=== PATIENT | female | born 1970 | race Caucasian/White ===

== ENCOUNTER 2025-07-06 06:39 | Day surgery (SDC) | payer OTHER, SELFPAY ==
--- NOTE | 2025-07-01 11:03 | HO.ANESPROP2 ---
Documented by User: Lorrie Ortiz NP 07/01/25 11:03 HPI - Anesthesia Eval Consult details Narrative: 55 yr old female for C7-T1 Cervical Interlaminar KI PMFSH Active Problems Active Problems: All Active Problems (Updated 06/22/25 @ 19:18 by Kenji Martino DO) Cervical radiculitis (Acute) Past Medical History Medical History Arthritis Depression Cold sore Vertigo Obesity Surgical History Surgical History History of hip surgery Status post ORIF of fracture of ankle S/P cholecystectomy H/O cervical spine surgery Social History Social History Household Members: Spouse Patient Tobacco Use Status: Never used Tobacco Use of substances other than those prescribed or required for medical reasons: No Have you been hit, kicked, punched, or otherwise hurt by someone within the past year? If so, by whom?: No Are you DNR?: No Advance Directives: No Advance Directives Information Provided: Yes Meds Allergies Allergy/AdvReac Type Severity Reaction Status Date / Time No Known Allergies Allergy Verified 07/01/25 11:04 Home Medications ?Medication ?Instructions ?Recorded ?Confirmed ?Last Taken ?Type escitalopram oxalate 10 mg tablet 10 mg PO DAILY 07/02/25 07/06/25 07/05/25 History Documented by User: Lily Vallecillo MD 07/06/25 07:38 PMFSH Past Medical History Medical History Arthritis Depression Cold sore Vertigo Obesity Surgical History Surgical History History of hip surgery Status post ORIF of fracture of ankle S/P cholecystectomy H/O cervical spine surgery History of Problems with Anesthesia: No Social History Social History Household Members: Spouse Patient Tobacco Use Status: Never used Tobacco Use of substances other than those prescribed or required for medical reasons: No Have you been hit, kicked, punched, or otherwise hurt by someone within the past year? If so, by whom?: No Are you DNR?: No Advance Directives: No Advance Directives Information Provided: Yes Meds Allergies Allergy/AdvReac Type Severity Reaction Status Date / Time No Known Allergies Allergy Verified 07/01/25 11:04 Home Medications ?Medication ?Instructions ?Recorded ?Confirmed ?Last Taken ?Type escitalopram oxalate 10 mg tablet 10 mg PO DAILY 07/02/25 07/06/25 07/05/25 History Exam Airway Mallampati Class: II TM Dist: >3cm Neck ROM: Full Loose/Missing/Broken Teeth: No Heart: RRR Lungs: CTA Assessment and Plan Assessment Anesthesia Assessment: Anesthesia Plan Discussed and Chart Reviewed Final Anesthetic Review History of Problems with Anesthesia: No NPO: Yes ASA Class: II Final Preanesthetic Review: Meds/Allgs Chart Reviewed, Consent Obtained/Reviewed and Anes Risks/Benef Reviewed Patient Risk: Low Procedure Risk: Low Anesthetic Plan Anesthetic Plan: MAC: Disposition: Standard PACU
--- NOTE | ~2025-07-06 | FL_ITS ---
EXAMINATION: FL GUIDANCE ONLY HISTORY: c7-t1 cervical interlaminar kristin COMPARISON: None available. TECHNIQUE: Fluoroscopy time: 13 seconds. Cumulative Dose: 1.40 mGy. DAP: 26.12 uGym2 Images: 1. FINDINGS: A single fluoroscopic spot film of the cervicothoracic junction demonstrates a needle and contrast material. FL/FL guidance in OR IMPRESSION: Fluoroscopy during procedure. Please see procedure report for additional information. Electronically signed by: Chuck Rowe MD 07/06/2025 08:52 AM EST
[2025-07-06 06:53] VITALS: BP 105/50; PULSE 64; RESP 20; TEMP 36.4; O2SAT 96; BMI 35.1
[2025-07-06] MEDS: Lactated Ringers 1,000 ML 100 ML IVCONT (07:06)
--- NOTE | 2025-07-06 07:48 | MHC.SHP ---
Pre-Procedural Eval Section A - 24 Hr Update-Section A only Date of Service: 07/06/25 The patient is an INPATIENT: No Section B - Complete if H&P > 30 days Chief Complaint: Radiculopathy, cervical region Details of Present Illness: Chronic cervical radiculitis Relevant Family History (Specify if Yes): No Relevant Social History: None Present Medications: see Short Stay Collaborative assessment Medical History: No relevant PMH History of Previous Operations: Relevant previous surgery/procedure and date(s) (Cervical ACDF) Allergies: Allergies Allergy/AdvReac Type Severity Reaction Status Date / Time No Known Allergies Allergy Verified 07/01/25 11:04 Review of Systems Sugical H&P ROS: Negative: Constitution, Cardiovascular, Respiratory, Neurological, Psychiatric, Hem-Onc, Allergic/Immunologic, Gastrointestinal, Genitourinary, Musculoskeletal, Integumentary, Endocrine and Eyes/Ears/Nose/Throat Exam Surgical H&P Exam: Normal: HEENT, Normal: Heart, Normal: Lungs, Normal: Extremities, Normal: Abdomen, Normal: Skin and Normal: Neurological Plan Diagnosis/Plan: Unchanged I have reviewed the history and physical and performed a pertinent physical examination on my patient. No changes have occurred unless specified. Time Spent With Patient Time: Total time managing care of this patient today ____ minutes.
--- NOTE | 2025-07-06 07:50 | W.PM.OPN ---
Operative Note Operative Note Date of Service: 07/06/25 Narrative: Procedure performed: Right C7-T1 KI Preop diagnosis: Cervical radiculitis Postop diagnosis: The same Anesthesia: MAC After informed consent was obtained patient was brought into the procedure room and placed in the prone position procedure table. Skin over cervicothoracic junction was prepped and draped in the usual sterile manner. Right C7-T1 interlaminar space was visualized utilizing fluoroscopy. After skin was anesthetized with lidocaine, 3.5 in 20 gauge Tuohy needle was introduced percutaneously and advanced superior edge of the T1 lamina. Needle was then slowly advanced into the epidural space utilizing loss of resistance technique. Once in place, needle placement was verified utilizing 3 cc of Omnipaque contrast solution. Good epidural spread was visualized. After negative aspiration for blood or cerebrospinal fluid, total volume of 5 cc containing 40 mg of triamcinolone and normal saline solution was injected. Radiation exposure was documented.
[2025-07-06 08:27] VITALS: BP 112/71; PULSE 61; RESP 16; TEMP 36.8; O2SAT 95
[2025-07-06 08:42] VITALS: BP 118/68; PULSE 67; RESP 16; TEMP 36.6; O2SAT 96
== END 2025-07-06 09:32 | disposition home or self-care (01) ==
PROVIDERS: PCP Internal Medicine; Visit Provider Physical Medicine & Rehabilitation
PROC: (CPT 62321; principal; 2025-07-06 08:00)
DX: M54.12 Radiculopathy, cervical region (principal); M48.02 Spinal stenosis, cervical region; M96.1 Postlaminectomy syndrome, not elsewhere classified; M19.90 Unspecified osteoarthritis, unspecified site; F32.A Depression, unspecified; R42 Dizziness and giddiness; Z79.899 Other long term (current) drug therapy; Z90.49 Acquired absence of other specified parts of digestive tract; Z98.890 Other specified postprocedural states
CPT/HCPCS: 62321; J2003; J2250; J3301; Q9967

== ENCOUNTER → 2025-07-06 06:39 | Outpatient (BNV) | payer OTHER, SELFPAY | PROVIDERS: PCP Internal Medicine; Visit Provider Physical Medicine & Rehabilitation | DX: M54.12 Radiculopathy, cervical region (principal) | CPT/HCPCS: 62321 ==

== ENCOUNTER 2025-07-28 08:31 | Outpatient (AMB) | payer OTHER, SELFPAY ==
[2025-07-28 08:31] VITALS: BMI 35.0
--- NOTE | 2025-07-28 08:31 | A.PHYSOV_ITS ---
Vital Signs 07/28/25 08:31 Height 5 ft 9 in Weight 237 lb BMI 35.0 Intake Visit Reasons: F/U after injection 07/06/2025 Intake Note: Patient is a 55 year old female in office today for a follow up after Right C7- T1 interlaminar epidural injection 07/06/25. 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 She has a history of C5-C6 cervical disc displacement from 2018 with persistent right-sided cervical radicular symptoms. Her very initial radicular symptoms were on the left side which eventually propagated to the right side An MRI of her cervical spine on August 14, 2023, led to a neurosurgical consultation. Based on her MRI results showing a right C5 neural foraminal stenosis, she underwent a right C5 transforaminal injection on September 24, 2023, which provided no relief. Subsequently, she had a C4-C5 ACDF on December 26, 2023, which initially resulted in significant improvement of a buzzing sensation in her right shoulder. She continued to experience a persistent sensation of tiredness and weakness post-surgery, and the buzzing sensation later returned. A cervical spine X-ray on January 22, 2024, demonstrated post-surgical changes at C4-C5 with an interbody spacer and the prior ACDF at C5-C6. A repeat cervical spine MRI on June 01, 2025, showed the post-surgical changes, moderate left and minimal right uncovertebral spurs at the C6-C7 level, and no significant spinal stenosis. She most recently had a right C7-T1 interlaminar epidural injection on July 06, 2025. She reports at least 90% improvement in her symptoms after the procedure. She is very happy with the outcome of the procedure so far. The patient's job involves continuous computer use, and she is also physically active, lifting her twin grandsons. Pain Description - Location: Prior to the most recent injection, the patient experienced a buz zing sensation in the right shoulder, along with heaviness, tiredness, and weakness in the right forearm. - Current Symptoms: Post-injection, she reports some residual pain in her upper neck/shoulder area, which is present even at rest with her arms down. - Character: Previously described as a buzzing feeling with arm weakness and heaviness. - Relieving Factors: A right C7-T1 interlaminar epidural injection on July 06, 2025, provided approximately 90% improvement, resolving the buzzing, weakness, and heaviness. - Exacerbating Factors: Lifting her arm does not exacerbate the current residual pain. - Functional Impact: She continues to work on a computer and lift her grandchildren. Results - MRI Cervical Spine (August 14, 2023): Demonstrated a right C5 issue and advancing degeneration of the L4-L5 disc. - X-ray Cervical Spine (January 22, 2024): Showed post-surgical changes at C4-C5 with an interbody spacer and a prior ACDF at C5-C6. - MRI Cervical Spine (June 01, 2025): Showed post-surgical changes, moderate left and minimal right C6-C7 uncovertebral spurs, and no significant spinal stenosis. [facility] Medical History (Updated 07/28/25 @ 08:45 by Kenji Martino DO) Cervicobrachial syndrome Post laminectomy syndrome Arthritis Depression Cold sore Vertigo Obesity Surgical History History of hip surgery Status post ORIF of fracture of ankle S/P cholecystectomy H/O cervical spine surgery Social History (Updated 07/28/25 @ 08:34 by Lacy Farrar MA) Household Members: Spouse Alcohol intake: current Alcohol intake frequency: holidays/special occasions only Patient Tobacco Use Status: Never used Tobacco Current occupational status: employed Current occupation: registered phlebotomist part time Review of Systems Narrative Review of Systems - Neurological: Reports a history of buzzing sensation, weakness, and heaviness in the right arm which have resolved after her recent injection. She continues to feel that her right arm feels different at rest. - Musculoskeletal: She reports some residual pain in her upper neck/shoulder region. - General: Reports feeling tired and weak after her surgery in December 2023, but does not specify if this is ongoing. Denies any change in bowel bladder habits. Denies any fever or chills. Physical Exam Exam Exam: Physical Exam Patient appears to be in no acute distress, appropriately conversant oriented. She ambulates without antalgia. Neurological examination of upper and lower extremities was nonfocal. Spurling maneuver was negative. Lhermitte's sign was negative. Cervical range of motion was restricted in rotation and side bending to the right. Patient demonstrated no upper motor neuron signs. Vital Signs: BMI result Body Mass Index 35.0 Assessment & Plan Assessment & Plan (1) Cervical radiculitis: Code(s): M54.12 - Radiculopathy, cervical region Category: Medical (2) Post laminectomy syndrome: Code(s): M96.1 - Postlaminectomy syndrome, not elsewhere classified Category: Medical (3) Cervicobrachial syndrome: Code(s): M53.1 - Cervicobrachial syndrome Category: Medical Plan Pain Management - Analgesia: The patient reports 90% pain improvement following a right C7-T1 interlaminar epidural injection. - Affect: The patient is positive about the results of the injection. - Activities of Daily Living: The patient continues to work on a computer and lift her grandchildren. - Adverse Effects: No adverse effects from treatment were discussed. - Aberrant Drug Related Behaviors: No aberrant behaviors were noted or discussed. Plan Patient was informed and verbally consented to the use of an ambient scribe for clinic note documentation during this visit. 1. Cervical Radiculopathy The patient is status post a right C7-T1 interlaminar epidural injection on July 06, 2025, for right-sided radicular symptoms. She reports approximately 90% improvement, with resolution of the previously reported buzzing, weakness, and heaviness in her right arm. Given the significant symptomatic relief from the injection and MRI findings that do not support surgical intervention, the current plan is conservative management. She has the option for a repeat injection in the future if her symptoms recur. The patient will follow up on an as-needed basis and will call if symptoms worsen. Discussion Notes I discussed with the patient that her recent right C7-T1 interlaminar epidural injection appears to be working well, as she reported 90% improvement in her symptoms. I noted that the buzzing, weakness, and heaviness in her right arm have resolved. I explained that although her MRI shows bone spurs, they are more pronounced on her asymptomatic left side, and therefore I do not recommend surgical intervention at this point. We agreed that she can receive another injection in the future if needed, provided the current one offers sustained relief. The plan is for her to monitor her symptoms and to call the office if they worsen, rather than scheduling a routine follow-up. Patient Instructions - We are very happy that your recent injection has provided 90% relief of your arm symptoms. - Based on our discussion and your imaging results, we do not recommend surgery at this time. - You may be able to get another injection in the future if you feel your symptoms are returning. - Please call the office if your pain gets worse or if your arm symptoms come back. Coding Level of Care Code Est Pt Level 4 (79768) Add On Problem Visit Only Diagnoses Cervical radiculitis M54.12 Post laminectomy syndrome M96.1 Cervicobrachial syndrome M53.1
--- OUTSIDE RECORDS SUMMARY | 2025-07-28 09:02 | XMS_ITS | Patient Health Record ---
Author Organization [facility] Address [address] [place] [address] Care Team Providers Care Public Relations Specialist Name Role Phone HARRY GRABELA Primary Care Provide [phone] Allergies No Known Allergies Reason For Referral No Information Medications Medication SIG (Take, Route, Frequency, Duration) Notes Start Date End Date Status Escitalopram Oxalate 10 MG Tablet TAKE 1 TABLET BY MOUTH EVERY DAY; Duration: 90 Active Social History Tobacco Use: Social History Observation Description Date Details (start date - stop date) Never Smoker NA - NA Social History Drug/Alcohol: Social Info Question Answer Notes Alcohol Screen Did you have a drink containing alcohol in the past year? Yes How often did you have a drink containing alcohol in the past year? Four or more times a week (4 points) How many drinks did you have on a tpical day when you were drinking in the past year? 1 or 2 (0 points) How often did you have six or more drinks on one occassion in the past year? 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: none Past year's travels: none alcohol use: 2-3 drinks per w [place] drug use: none Hobbies/Exercise habits: book cl ub Coffee/Tea/Soda: no coffee, chema y tea, no soda Marital Status experience n/a Living with Pets dog smokers in household none Drugs none Section Notes: never smoker never smoker never smoker never smoker never smoker Problems Problem Type SNOMED Code ICD Code Onset Dates Problem Status W/U Status Risk Notes Problem Vitamin D deficiency (83199437) Vitamin D deficiency (E55.9) Active confirmed Problem Urinary frequency (729478332) Urinary frequency (R35.0) Active confirmed Problem Mammography abnormal (231323781) Abnormal mammogram of right breast (R92.8) Active confirmed Problem Hyperlipidemia (71094843) Hyperlipidemia (E78.5) Active confirmed Problem Arthritis (1673192) Arthritis (M19.90) Active confirmed Problem Chronic pain (86365462) Other chronic pain (G89.29) Active confirmed Problem Cholelithiasis witho ut obstruction (87552171) Calculus of gallbladder without cholecystitis without obstruction (K80.20) Active confirmed Problem Sleep disturbance (00861316) Sleep disturbance (G47.9) Active confirmed Problem Vertigo (202703587) Vertigo (R42) Active confir med Problem Lumbar radiculopathy (136216682) Lumbar radiculopathy (M54.16) Active confirmed Problem Gallstones (556567541) Gallstone s (K80.20) Active confirmed Problem Intolerant of heat (52789723) Heat intolerance (R68.89) Active confirmed Problem Depressive disorder (disorder) (15079777) Depression, unspecified depression type (F32.9) Active confirmed Problem Dextroscoliosis (223056054785960) Dextroscoliosis (M41.80) Active confirmed Problem Displacement of lumb ar intervertebral disc without myelopathy (40416358) Lumbosacral disc herniation (M51.27) Active confirmed Problem Incontinence of fece s (34554297) Incontinence of feces, unspecified fecal incontinence type (R15.9) Active confirmed Problem Cervical radiculopat hy (86654253) Cervical radiculopathy at C5 (M54.12) Active confirmed Problem Disorder of musculoskeletal system (704158) Leg weakness, bilateral (R29.898) Active confirmed Problem Generalized anxiety disorder (03536063) KAYLIN (generalized anxiety disorder) (F41.1) Active confirmed Problem History of hypercholesterolemia (745040366) History of high cholesterol (Z86.39) Active confirmed Problem Subclinical hypothyroidism (59781063) Subclinical hypothyroidism (E03.8) Active confirmed Vital Signs Blood pressure diastolic 72 mm Hg 04/28/2025 Height 68.5 in 04/28/2025 Blood pressure systolic 118 mm Hg 04/28/2025 Weight 235 lbs 04/28/2025 BMI 35.21 kg/m2 04/28/2025 Encounters Encounter Location Date Provider Diagnosis [address] [address] 04/28/2025 [facility] Physical exam Z00.00 ; Cervical radiculopathy at C5 M54.12 ; Hyperlipidemia E78.5 ; Sleep disturbance G47.9 ; Low vitamin B12 level R79.89 ; Depression, unspecified depression type F32.9 and Lumbar radiculopathy M54.16 [place] [id number] 04/01/2025 [facility] Physical exam Z00.00 ; Hyperlipidemia E78.5 ; Vitamin D deficiency E55.9 ; B12 deficiency E53.8 and Subclinical hypothyroidism E03.8 [place] [id number] 04/01/2025 [facility] [address] [place] [id number] 08/11/2024 [facility] Assessments Encounter Date Diagnosis (ICD Code) Assessment Notes Treatment Notes Treatment Clinical Notes Section Notes 04/01/2025 Physical exam (ICD-10 - Z00.00) 04/28/2025 Physical exam (ICD-10 - Z00.00) utd labs and age approp screen 04/01/2025 Hyperlipidemia (ICD-10 - E78.5) 04/28/2025 Cervical radiculopathy at C5 (ICD-10 - M54.12) fu w/ physiatry as planned (knows to avoid chiropractor, rollercoasters) 04/28/2025 Hyperlipidemia (ICD-10 - E78.5) is doing better, lipids improved will cont to monitor 04/01/2025 Vitamin D deficiency (ICD-10 - E55.9) 04/01/2025 B12 deficiency (ICD-10 - E53.8) 04/28/2025 Sleep disturbance (ICD-10 - G47.9) difficulty falling asleep have ext discussed sleep hygiene 04/28/2025 Low vitamin B12 level (ICD-10 - R79.89) rec otc supplement of choice 04/01/2025 Subclinical hypothyroidism (ICD-10 - E03.8) 04/28/2025 Depression, unspecified depression type (ICD-10 - F32.9) feels mood good on current regimen 04/28/2025 Lumbar radiculopathy (ICD-10 - M54.16) chronic, no weakness, will fu w/ physiatry as planned 04/28/2025 Other Patient is seen today for a routine physical. As part of this visit we reviewed the following issues, which are considered and essential part of preventative health in this age group: - Breast Cancer screening for high risk individuals - utd - Cervical Cancer screening every 1-3 years - utd - Blood pressure screening annually - performed - Cholesterol screening every five years -utd - Osteoporosis prevention including calcium/vitamin D intake, weight bearing exercise & smoking cessation - Nutritional and exercise counseling - patient was advised to incorporate reg exercise - Counseling of injury prevention including fire prevention, smoke alarms and seat belt usage - Screening for depression - denies - Screening for domestic abuse - Screening for Type 2 diabetes mellitus in those with HTN and/or HLD - Prevention of and/or testing for infectious diseases, which may include Chlamydia Gonorrhea, Syphilis, HIV, Hepatitis C, and Tuberculosis - Education about skin cancer - Recommendations about immunizations - Recommendation of an eye exam for glaucoma once in this age range - patient utd - Screening for substance abuse (including tobacco, alcohol, and recreational drugs) -denies - Genetic cancer risk screening - - In addition to reviewing these issues, I have reviewed the following sections of the chart: family history, social history, surgical history, allergies, and past medical history. Plan Of Treatment Pending Test Test Name Order Date Echocardiogram 07/27/2022 CBC W/ AUTOMATED DIFF 07/27/2022 COMP. METABOLIC 07/27/2022 TSH WITH REFLEX TO FT4 07/27/2022 MRI cervical spine without contrast 09/13 Future Test Test Name Order Date LIPID PROFILE 03/10/2022 VITAMIN B12 03/10/2022 CBC W/ AUTOMATED DIFF 03/10/2022 COMP. METABOLIC 03/10/2022 HEPATIC FUNCTION PANEL 03/10/2022 LIPID PROFILE 09/13/2022 VITAMIN B12 09/13/2022 CBC W/ AUTOMATED DIFF 09/13/2022 25 OH Vitamin D 09/13/2022 TSH WITH REFLEX TO FT4 09/13/2022 MRI : Cervical Spine, with and without c ontrast 01/17/2023 Next Appt Details Provider Name:MATT HAYNESEUGENIOHILARYBERNIE, 04/29/2026 09:00:00 AM, [address] [place], [address], Insurance Providers Payer Name Payer Address Payer Phone Subscriber Number Group Number Insured Name Patient Relationship to Insured Coverage Start Date Coverage End Date [facility] [address] [place], [place] [id number] [phone] [id number] JEFF DICKSON Self - patient is the insured 2 Medical (General) History Medical History History ICD Code Arthritis depression vertigo Surgical History Surgery Date(Month/Year) ACDF 12/2023 gal bladder out 2021 neck surgery 2018 ankle surgery 2016 hip surgery 2011 Hospitalization History Reason Date(Month/Year) hot flushed, vomiting , loose stools 4 d ays prior 08/03
--- OUTSIDE RECORDS SUMMARY | 2025-07-28 09:02 | XMS_ITS | Patient Health Record ---
Author Organization [facility] Address [address] [place] [address] Care Team Providers Care Pediatric Oncology Nurse Name Role Phone MATT GILLETTE Primary Care Provide r Unavailable HUMBLE SMITH Unavailable [phone] Allergies No Known Allergies Reason For Referral No Information Medications Medication SIG (Take, Route, Frequency, Duration) Notes Start Date End Date Status Escitalopram Oxalate 10 MG TAKE 1 TABLET BY MOUTH EVERY DAY Oral; Duration: 30 Active valACYclovir HCl 1 GM 2 tablet Orally tw ice a day at earlies sign of outbreak; Duration: 1 days Active Levonorgestrel-Ethinyl Estrad 0.1-20 MG-MCG TAKE 1 TABLET DAILY Not-Taking Meclizine HCl 12.5 MG TAKE 1 TABLET BY M OUTH THREE TIMES A DAY NEEDED Oral; Duration: 20 Active Social History Alcohol Screen (Audit-C) Question Answer Notes Did you have a drink contain ing alcohol in the past year? Yes How often did you have a dri nk containing alcohol in the past year? Monthly or less (1 point) How many drinks did you have on a typical day when you were drinking in the past year? 1 or 2 drinks (0 point) Points 1 Interpretation Negative Sexual History Question Answer Notes Had sex in the past 12 months (vaginal, oral, or anal)? Yes with Men only Prevention strategies discussed: Other Tobacco use other than smoking: Question Answer Notes Are you an other tobacco user? No Section Notes: MARITAL STATUS: CHILDREN: none LIVES WITH: spouse OCCUPATION: employed full-time EXERCISE: occasional walking SEXUAL ACTIVITY: monogamous relationship. Heterosexual MARITAL STATUS: CHILDREN: none LIVES WITH: spouse OCCUPATION: employed full-time EXERCISE: occasional walking SEXUAL ACTIVITY: monogamous relationship. Heterosexual MARITAL STATUS: CHILDREN: none LIVES WITH: spouse OCCUPATION: employed full-time EXERCISE: occasional walking SEXUAL ACTIVITY: monogamous relationship. Heterosexual MARITAL STATUS: CHILDREN: none LIVES WITH: spouse OCCUPATION: employed full-time EXERCISE: occasional walking SEXUAL ACTIVITY: monogamous relationship. Heterosexual MARITAL STATUS: CHILDREN: none LIVES WITH: spouse OCCUPATION: employed full-time EXERCISE: occasional walking SEXUAL ACTIVITY: monogamous relationship. Heterosexual Problems Problem Type SNOMED Code ICD Code Onset Dates Problem Status W/U Status Risk Notes Problem Urge incontinence of urine (49923787) Urge incontinence (N39.41) Active confirmed Problem Female infertility (4756635) Female infertility, unspecified (N97.9) Active confirmed Problem Family history of malignant neoplasm of breast (593662477) Family history of malignant neoplasm of breast (Z80.3) Active confirmed Plan Of Treatment Pending Test Test Name Order Date MM Digital Mammo Screening 10/12/2015 MM Digital Mammo Screening 11/01/2016 MM Digital Mammo Screening 12/19/2017 MM Digital Screening Mammogram 3D 2018 MM Digital Screening Mammogram 3D 2019 MM Digital Screening Mammogram 3D 2021 Insurance Providers Payer Name Payer Address Payer Phone Subscriber Number Group Number Insured Name Patient Relationship to Insured Coverage Start Date Coverage End Date [facility] [address] [place] [id number] JEFF DICKSON Self - patient is the insured Medical (General) History Medical History History ICD Code Abnormal pap Female infertility, unspecified N97.9 Panic disorder [episodic paroxysmal anxi ety] F41.0 Vertigo of central origin, unspecified e ar H81.49 Family history of malignant neoplasm of breast Z80.3 Surgical History Surgery Date(Month/Year) Hip Impingement Surgery 2010 IVF Left Ankle Surgery 07/2016 Anterior Cervical Disectomy 09/17/2017 Cyst Removed from Right Breast 11/2017 Right Breast Bx 04/21/20 Hospitalization History Reason Date(Month/Year) See Surgical Hx
--- OUTSIDE RECORDS SUMMARY | 2025-07-28 09:02 | XMS_ITS | Clinical Summary ---
Author Organization [facility] Address [address] [place] [address] Phone Care Team Providers Care Mobile Heavy Equipment Mechanic Name Role Phone JayyedgarImelda Forrest DO Primary Care Pro vider Allergies No known active allergies Medications escitalopram (LEXAPRO) 10 mg tablet Take 1 tablet (10 mg total) by mouth 1 (one) time each day. Active Encounters Date Type Department Care Team Description 06/01/2025 5:49 PM EDT - 06/01/2025 11:59 PM EDT Hospital Encounter [facility] [address] [place] [address] Spinal stenosis Discharge Disposition: Home or Self Care from Last 3 Months Surgical History Surgery Date Site/Laterality Comments STEREOTACTIC CORE BIOPSY Right Family History Medical History Relation Name Comments Breast cancer Sister Relation Name Status Comments Sister Social History Tobacco Use Types Packs/Day Years Used Date Smoking Tobacco: Never Smokeless Tobacco: Never Alcohol Use Standard Drinks/Week Comments Yes 0 (1 standard drink = 0.6 oz pur e alcohol) Comments No Sex and Gender Information Value Date Recorded Sex Assigned at Not on file Legal Sex Female 10:23 AM EST Gender Identity Not on file Sexual Orientation Not on file Last Filed Vital Signs Vital Sign Reading Time Taken Comments Blood Pressure 116/74 03/03/2025 2:36 PM EDT Pulse 80 03/03/2025 2:36 PM EDT Temperature 37.1 C (98.8 F) 01/13/2025 3:03 PM EDT Respiratory Rate - - Oxygen Saturation - - Inhaled Oxygen Concentration - - Weight 110 kg (242 lb) 03/03/2025 2:36 PM EDT Height 175.3 cm (5' 9 ) 03/03/2025 2:36 PM EDT Body Mass Index 35.74 03/03/2025 2:36 PM EDT Plan of Treatment Health Maintenance Due Date Last Done Comments Colorectal Cancer Screening: Colonoscopy 1970 DTaP,Tdap,and Td Vaccines (1 - Tdap) 1989 Hepatitis B Vaccines (1 of 3 - 19+ 3-dose series) 1989 Cervical Cancer Screening: Pap Smear 1991 Pneumococcal Vaccine: 50+ Years (1 of 1 - PCV) 02/16/2020 Zoster Vaccines (2 of 2) 10/19/2020 08/24/2020 HIV Screening 07/16/2022 Hepatitis C Screening 07/16/2022 Social Influencers of Health Screening 07/16/2022 Depression Screening 08/13/2024 COVID-19 Vaccine ( season) 2025 08/09/2021, 11/26/2020, 10/29/2020 Breast Cancer Screening 02/24/2027 02/25/20, 08/19/2024, 02/11/2024, Additional history exists RSV Immunization Adult Patients (1 - 1-dose 75+ series) 2045 Influenza Vaccine Completed 05/20/2025, , 09/18/2017 HIB Vaccines Aged Out No longer eligi ble based on patient's age to complete this topic HPV Vaccines Aged Out No longer eligi ble based on patient's age to complete this topic Hepatitis A Vaccines Aged Out No long er eligible based on patient's age to complete this topic IPV Vaccines Aged Out No longer eligi ble based on patient's age to complete this topic MMR Vaccines Aged Out No longer eligi ble based on patient's age to complete this topic Meningococcal ACWY Vaccine Aged Out N o longer eligible based on patient's age to complete this topic Meningococcal B Vaccine Aged Out No l onger eligible based on patient's age to complete this topic RSV Immunization Patients Under 20 months Aged Out No longer eligible based on patient's age to complete this topic Varicella Vaccines Aged Out No longer eligible based on patient's age to complete this topic Procedures Procedure Name Priority Date/Time Associated Diagnosis Comments MR CERVICAL SPINE WO CONTRAST Routine 06/01/2025 6:50 PM EDT Spinal stenosis MG MAMMO DIGITAL DIAGNOSTIC W JESÚS BILAT Routine 02/24/2025 11:34 AM EDT Follow-up exam from Last 3 Months or Most Recently Relevant to Health Maintenance Results * MR Cervical Spine wo Contrast (06/01/2025 6:50 PM EDT) Anatomical Region Laterality Modality C-spine, Spine Magnetic Resonan ce 06/04/2025 2:54 PM EDT Impressions 06/04/2025 3:48 PM EDT C4-5 and C5-6 anterior fusion. Degenerative changes as detailed above. No significant spinal stenosis. -------- FINAL REPORT -------- Dictated By: Josr Graves Dictated Date: 06/04/2025 14:54 ET Assigned Physician: Josr Graves Reviewed and Electronically Signed By: Josr Graves Signed Date: 06/04/2025 15:48 ET Workstation ID: [id number] Transcribed By: Self Edit Transcribed Date: 06/04/2025 14:56 ET Narrative 06/04/2025 3:48 PM EDT PROCEDURE: MRI of the cervical spine without intravenous contrast. TECHNIQUE: Sagittal and axial multisequence MRI of the cervical spine without intravenous contrast administration. HISTORY: spinal stenosis COMPARISON: 08/21/2023. FINDINGS: Visualized portions of the brain and skull base are normal. Paraspinous soft tissues are normal. Straightening of the typical cervical lordosis. Susceptibility artifact secondary to anterior fusion hardware at C4-5 and C5-6. The hardware at C5-6 is stable in the hardware at C4-5 is new. No suspicious marrow infiltrative lesion. The cord is normal in caliber and signal. Cervical disc levels: C2-3: Minimal degenerative irregularity of the endplates and facet joints. No spinal or foraminal stenosis. C3-4: Small left and minimal right uncovertebral spurs. Mild degenerative irregularity of the facet joints. No significant spinal or foraminal stenosis. C4-5: Fusion level. Minimal degenerative irregularity of the right facet joint. No spinal or foraminal stenosis. C5-6: Fusion level. Small bilateral uncovertebral spurs. No spinal or foraminal stenosis. C6-7: Small anterior endplate osteophytes. Mild endplate irregularity. Moderate left and minimal right uncovertebral spurs. The left uncovertebral spurs result in mild flattening of the anterior cord and mild left foraminal stenosis. There is no significant spinal stenosis. C7-T1: Mild degenerative irregularity of the facet joints. No spinal or foraminal stenosis. Procedure Note Josr Graves MD - 06/04/2025 PROCEDURE: MRI of the cervical spine without intravenous contrast. TECHNIQUE: Sagittal and axial multisequence MRI of the cervical spinewithout intravenous contrast administration. HISTORY: spinal stenosis COMPARISON: 08/21/2023. FINDINGS: Visualized portions of the brain and skull base are normal. Paraspinous soft tissues are normal. Straightening of the typical cervical lordosis. Susceptibility artifactsecondary to anterior fusion hardware at C4-5 and C5-6. The hardware atC5-6 is stable in the hardware at C4-5 is new. No suspicious marrowinfiltrative lesion. The cord is normal in caliber and signal. Cervical disc levels: C2-3: Minimal degenerative irregularity of the endplates and facet joints.No spinal or foraminal stenosis. C3-4: Small left and minimal right uncovertebral spurs. Mild degenerativeirregularity of the facet joints. No significant spinal or foraminalstenosis. C4-5: Fusion level. Minimal degenerative irregularity of the right facetjoint. No spinal or foraminal stenosis. C5-6: Fusion level. Small bilateral uncovertebral spurs. No spinal orforaminal stenosis. C6-7: Small anterior endplate osteophytes. Mild endplate irregularity.Moderate left and minimal right uncovertebral spurs. The leftuncovertebral spurs result in mild flattening of the anterior cord andmild left foraminal stenosis. There is no significant spinal stenosis. C7-T1: Mild degenerative irregularity of the facet joints. No spinal orforaminal stenosis. IMPRESSION: C4-5 and C5-6 anterior fusion. Degenerative changes as detailed above. No significant spinal stenosis. -------- FINAL REPORT -------- Dictated By: Josr Graves Dictated Date: 06/04/2025 14:54 ET Assigned Physician: Josr Graves Reviewed and Electronically Signed By: Josr Graves Signed Date: 06/04/2025 15:48 ET Workstation ID: [id number] Transcribed By: Self Edit Transcribed Date: 06/04/2025 14:56 ET Kenji Martino DO IMG MRI PROCEDURES Final Result * MG Mammo Digital Diagnostic w Jesús bilat (02/24/2025 11:34 AM EDT) Anatomical Region Laterality Modality Breast Bilateral Mammography 02/24/2025 11:5 4 AM EDT Impressions 02/24/2025 12:03 PM EDT No mammographic or sonographic evidence of malignancy. No suspicious interval change in the right breast. The right breast can be monitored at the time of annual screening. There is a subcutaneous abnormality in the area of clinical concern in the inframammary fold medially on the left. This is likely related to infection/inflammation. This area should be managed on the basis of the clinical breast exam. There is no discrete drainable fluid collection. ASSESSMENT: BI-RADS 2: BENIGN RECOMMENDATION(S): 1: Clinical correlation recommended LEFT [facility]amm[facility] [address], [address] -------- FINAL REPORT -------- Dictated By: Alejo Thomas Dictated Date: 02/24/2025 11:54 ET Assigned Physician: Alejo Thomas Reviewed and Electronically Signed By: Alejo Thomas Signed Date: 02/24/2025 12:03 ET Workstation ID: [id number] Transcribed By: Self Edit Transcribed Date: 02/24/2025 11:54 ET Narrative 02/24/2025 12:03 PM EDT EXAM: DIAGNOSTIC MAMMOGRAPHY, BILATERAL ULTRASOUND: DIAGNOSTIC ULTRASOUND, BILATERAL HISTORY: Probably benign asymmetry right breast. Abnormal clinical breast exam. Skin discoloration and thickening left inframammary fold COMPARISON: 08/19/24, 02/11/24, 02/06/23, 06/14/21, 12/07/20, 04/12/20 TECHNIQUE: Synthesized CC and MLO projections of each breast. Tomosynthesis of each breast in the CC and MLO projections. ADDITIONAL IMAGING: Tomosynthesis of the left breast in the craniocaudal projection exaggerated toward the axilla High-frequency linear transducer ultrasound of each breast targeted to the area(s) of clinical concern. Computer-aided detection was employed with the [employer] 3-D. TISSUE DENSITY: There are scattered areas of fibroglandular density. (BI-RADS category B) FINDINGS: MAMMOGRAPHY: RIGHT BREAST: There is an unchanged circumscribed small oval asymmetry in the medial right breast. This has benign features. No new suspicious right breast finding LEFT BREAST: There is a poorly defined focal asymmetry associated with the medial inframammary fold. This correlates to an area of skin abnormality, erythema and palpable abnormality. No new suspicious left breast finding ULTRASOUND: RIGHT BREAST 5 o'clock position, 6 cm from right nipple There is a homogeneous hyperechoic oval area of altered echotexture with long axis parallel. No suspicious posterior features. No color signal 02/24/25-0.5 cm 02/15/24-0.6 cm This has typically benign features 3 o'clock position, 10 cm from right nipple No suspicious abnormality. Specifically the oval area of altered echotexture on the previous study is no longer demonstrated LEFT BREAST 7 o'clock position, 10 cm from left nipple Area of palpable concern There is a hypoechoic area of altered echotexture in the subcutaneous tissues with some posterior enhancement. No color signal. No drainable fluid. No tract to the skin surface. 02/24/25-2.0 cm This corresponds to the area of abnormality on mammography and clinical breast exam This likely is related to infection/inflammation. Procedure Note Alejo Thomas MD - 02/24/2025 EXAM: DIAGNOSTIC MAMMOGRAPHY, BILATERAL ULTRASOUND: DIAGNOSTIC ULTRASOUND, BILATERAL HISTORY: Probably benign asymmetry right breast. Abnormal clinical breast exam. Skin discoloration and thickening leftinframammary fold COMPARISON: 08/19/24, 02/11/24, 02/06/23, 06/14/21, 12/07/20, 8/31/20 TECHNIQUE: Synthesized CC and MLO projections of each breast.Tomosynthesis of each breast in the CC and MLO projections. ADDITIONAL IMAGING: Tomosynthesis of the left breast in the craniocaudalprojection exaggerated toward the axilla High-frequency linear transducer ultrasound of each breast targeted to thearea(s) of clinical concern. Computer-aided detection was employed with the [employer] 3-D. TISSUE DENSITY: There are scattered areas of fibroglandular density.(BI-RADS category B) FINDINGS: MAMMOGRAPHY: RIGHT BREAST: There is an unchanged circumscribed small oval asymmetry in the medialright breast. This has benign features. No new suspicious right breastfinding LEFT BREAST: There is a poorly defined focal asymmetry associated with the medialinframammary fold. This correlates to an area of skin abnormality,erythema and palpable abnormality. No new suspicious left breast finding ULTRASOUND: RIGHT BREAST 5 o'clock position, 6 cm from right nipple There is a homogeneous hyperechoic oval area of altered echotexture withlong axis parallel. No suspicious posterior features. No color signal 25-0.5 cm 7//24-0.6 cm This has typically benign features 3 o'clock position, 10 cm from right nipple No suspicious abnormality. Specifically the oval area of alteredechotexture on the previous study is no longer demonstrated LEFT BREAST 7 o'clock position, 10 cm from left nipple Area of palpable concern There is a hypoechoic area of altered echotexture in the subcutaneoustissues with some posterior enhancement. No color signal. No drainablefluid. No tract to the skin surface. //25-2.0 cm This corresponds to the area of abnormality on mammography and clinicalbreast exam This likely is related to infection/inflammation. IMPRESSION: No mammographic or sonographic evidence of malignancy. No suspicious interval change in the right breast. The right breast can be monitored at the time of annual screening. There is a subcutaneous abnormality in the area of clinical concern in theinframammary fold medially on the left. This is likely related toinfection/inflammation. This area should be managed on the basis of theclinical breast exam. There is no discrete drainable fluid collection. ASSESSMENT: BI-RADS 2: BENIGN RECOMMENDATION(S): 1: Clinical correlation recommended LEFT Mamm[facility] location[facility] [address], [address] -------- FINAL REPORT -------- Dictated By: Alejo Thomas Dictated Date: 02/24/2025 11:54 ET Assigned Physician: Alejo Thomas Reviewed and Electronically Signed By: Alejo Thomas Signed Date: 02/24/2025 12:03 ET Workstation ID: [id number] Transcribed By: Self Edit Transcribed Date: 02/24/2025 11:54 ET Imelda Hunter DO IMG BI PROCEDURES Final Result from Last 3 Months or Most Recently Relevant to Health Maintenance Insurance [facility] Care Teams Mobile Heavy Equipment Mechanic Relationship Specialty Start Date End Date Imelda Hunter DO [facility] [address] [place] [phone] PCP - General Internal Medicine 08/12/24
== END 2025-07-28 08:44 | disposition home or self-care (01) ==
LOC: HO.HPHYS 08:31
PROVIDERS: PCP Internal Medicine; Visit Provider Physical Medicine & Rehabilitation
DX: M54.12 Radiculopathy, cervical region (principal); M96.1 Postlaminectomy syndrome, not elsewhere classified; M53.1 Cervicobrachial syndrome
CPT/HCPCS: 99214; G2211